=== PATIENT | female | born 1950 ===

== ENCOUNTER 2020-08-01 06:43 | Day surgery (SDC) | payer OTHER ==
[~2020-08-01 06:43] MED LIST: HYDROCHLOROTH12.5 MG PO; LIPITOR20 MG PO; SINGULAIR 10MG10 MG PO; TOPROL XL25 M1 PO; XARELTO20 MG PO
== END 2020-08-01 19:35 | disposition home or self-care (01) ==
LOC: EDSEX 06:43 → CIR.AMB 06:43
PROVIDERS: ATTEND Surgery
DX: D05.11 Intraductal carcinoma in situ of right breast (principal); Z20.828 Contact with and (suspected) exposure to other viral communicable diseases

== ENCOUNTER 2020-08-29 12:59 | Outpatient (CLI) | payer OTHER | END 2020-08-29 13:12 | disposition home or self-care (01) | LOC: SONOGRAMA 12:59 | PROVIDERS: ATTEND Surgery | DX: C50.411 Malignant neoplasm of upper-outer quadrant of right female breast (principal); N61.0 Mastitis without abscess; N61.1 Abscess of the breast and nipple ==